=== PATIENT | female | born 1965 | race Two or more races ===

== ENCOUNTER 2019-10-04 01:07 | Emergency (ER) | payer OTHER ==
[~2019-10-04] VITALS: Ht 157.5 cm; Wt 61.2 kg
== END 2019-10-04 09:52 | disposition home or self-care (01) ==
LOC: ER 01:07
DX: R42 Dizziness and giddiness (principal)

== ENCOUNTER 2020-06-28 15:52 | Emergency (ER) | payer OTHER ==
[~2020-06-28] VITALS: Ht 152.4 cm; Wt 61.2 kg
[2020-06-28] MEDS ORDERED: VITAMIN C500 M6 (16:21)
[2020-06-28] MEDS ORDERED: ZINC50 M1 (16:21)
== END 2020-06-28 20:56 | disposition home or self-care (01) ==
LOC: ER 15:52
DX: J10.1 Influenza due to other identified influenza virus with other respiratory manifestations (principal); B33.8 Other specified viral diseases; Z03.818 Encounter for observation for suspected exposure to other biological agents ruled out; R50.9 Fever, unspecified

== ENCOUNTER 2021-06-04 18:33 | Emergency (ER) | payer OTHER ==
[~2021-06-04] VITALS: Ht 149.9 cm; Wt 64.4 kg
[~2021-06-04 18:33] MED LIST: VITAMIN C500 M6; ZINC50 M1
== END 2021-06-04 21:36 | disposition home or self-care (01) ==
LOC: ER 18:33
DX: H11.32 Conjunctival hemorrhage, left eye (principal)

== ENCOUNTER 2023-03-03 08:48 | Emergency (ER) | payer OTHER ==
[~2023-03-03] VITALS: Ht 167.6 cm; Wt 64.0 kg
== END 2023-03-03 10:39 | disposition home or self-care (01) ==
LOC: ER 08:48
DX: R00.2 Palpitations (principal)

== ENCOUNTER 2023-04-09 08:58 | Emergency (ER) | payer OTHER ==
[~2023-04-09] VITALS: Ht 157.5 cm; Wt 59.4 kg
== END 2023-04-09 13:07 | disposition home or self-care (01) ==
LOC: ER 08:58
DX: N61.1 Abscess of the breast and nipple (principal)

== ENCOUNTER 2023-09-08 10:51 | Emergency (ER) | payer OTHER ==
[~2023-09-08] VITALS: Ht 157.5 cm; Wt 54.4 kg
[2023-09-08 12:29] LABS: HEMATOCRIT 34.4 % (36.0-45.00); HEMOGLOBIN 11.7 g/dL (12.0-15.00); MEAN CELL VOLUME 87.7 fL (80.00-100.00); MEAN CORPUSCULAR HEMOGLOBIN 29.9 pg (27.00-32.0); MEAN CORPUSCULAR HGB CONC 34.1 g/dl (32.0-36.0); PLATELET COUNT 278 K/uL (150-450); RED BLOOD COUNT 3.92 M/uL (4.00-6.00)
== END 2023-09-08 14:10 | disposition home or self-care (01) ==
LOC: ER 10:52
PROVIDERS: Emergency Medicine
DX: J22 Unspecified acute lower respiratory infection (principal); R53.81 Other malaise; Z20.822 Contact with and (suspected) exposure to COVID-19

== ENCOUNTER 2024-09-06 15:48 | Emergency (ER) | payer OTHER ==
[~2024-09-06] VITALS: Ht 154.9 cm; Wt 59.0 kg
[2024-09-06 15:58] VITALS: BP 135/92; O2SAT 99
[2024-09-06] MEDS ORDERED: FAMOTIDINE/PF 20 MG/2 ML VIAL ONE (16:26)
[2024-09-06] MEDS ORDERED: FAMOtidine 10 MG/ML (4ML VIAL) IV ONE (16:30)
[2024-09-06] MEDS ORDERED: 0.9 % SODIUM CHLORIDE 1,000 ML IV ONE (16:30)
[2024-09-06 17:07] LABS: HEMATOCRIT 36.6 % (36.0-45.00); HEMOGLOBIN 12.5 g/dL (12.0-15.00); MEAN CELL VOLUME 87.6 fL (80.00-100.00); MEAN CORPUSCULAR HGB CONC 34.2 g/dl (32.0-36.0); PLATELET COUNT 188 K/uL (150-450); RED BLOOD COUNT 4.18 M/uL (4.00-6.00); RED CELL DISTRIBUTION WIDTH 13.7 % (11.5-14.5)
[2024-09-06 17:34] LABS: ALBUMIN 3.6 gm/dL (3.4-5.0); BILIRUBIN TOTAL 0.45 mg/dL (0.3-1.2); CALCIUM 8.4 mg/dL (8.5-10.1); CREATININE SERUM 0.92 mg/dL (0.55-1.02); GFR 62.7; GLOBULINA 4.3 G/DL (2.4-3.5); POTASSIUM 3.62 mEq/L (3.5-5.1); TOTAL PROTEIN 7.9 gm/dL (6.4-8.2)
[2024-09-06] MEDS ORDERED: PROBIOTIC1 EAC2 PO (20:23)
[2024-09-06] MEDS ORDERED: PEPCID AC20 MG PO (20:23)
[2024-09-06] MEDS ORDERED: METRONIDAZOLE500 MG PO (21:13)
[2024-09-06] MEDS ORDERED: CIPRO500 MG PO (21:13)
== END 2024-09-06 21:20 | disposition home or self-care (01) ==
LOC: ER 15:50
PROVIDERS: General Practice
DX: R19.7 Diarrhea, unspecified (principal); Z20.822 Contact with and (suspected) exposure to COVID-19